=== PATIENT | male | born 1970 | race Caucasian/White ===

== ENCOUNTER → 2016-09-12 | Outpatient (CLI) | payer BC ==
[~2016-09-12] MED LIST: BUPR200T2 PO; GABA-113 PO; HYZ/10015 PO; IBUP-1428 PO; OXYC-57 PO; SERT50TA PO; TRIA0.25 PO
--- NOTE | 2016-09-12 14:43 | DIAGNOSTIC IMAGING REPORT ---
SCROTAL ULTRASOUND CLINICAL HISTORY: Spermatocele. COMPARISON STUDY: None. TECHNIQUE: Grayscale and color and duplex Doppler sonography of the scrotum was performed. FINDINGS: The right testis measures 4.4 x 1.7 x 2.9 cm and the left measures 3.9 x 2.6 x 2.9 cm. There is no testicular mass. Color flow within each testis is symmetric. There is a 2 mm left epididymal cyst. There is a 3.3 x 1.9 x 3.7 cm cystic focus adjacent to the right testis which suggests a spermatocele. IMPRESSION: 1. Normal sonographic appearance of the testes. 2. 3.3 x 1.9 x 3.7 cm right sided spermatocele. Electronically signed by: Sarkis Workman M.D. 09/12/2016 2:41 PM Dictated Date/Time: 09/12/2016 2:40 PM
== END | disposition home or self-care (01) ==
LOC: C.ULTR 13:48
PROVIDERS: ATTEND Nurse Practitioner Adult Health
DX: N40.1 Benign prostatic hyperplasia with lower urinary tract symptoms (principal); R39.12 Poor urinary stream; R39.11 Hesitancy of micturition; N43.40 Spermatocele of epididymis, unspecified

== ENCOUNTER → 2017-05-23 | Outpatient (CLI) | payer BC ==
[~2017-05-23] MED LIST changes: -OXYC-57 PO
--- NOTE | 2017-05-23 19:55 | DIAGNOSTIC IMAGING REPORT ---
LUMBAR SPINE W/O CONTRAST HISTORY: Pain. Radiculopathy. LUMBAR RADICULOPATHY TECHNIQUE: Multiplanar multisequence MRI of the lumbar spine was performed without the use of contrast. COMPARISON: None. FINDINGS: For the purpose of the report the L5-S1 disc space will be located on axial image 27 of 30. Signal characteristics of the vertebral bodies are unremarkable. There is moderate degenerative disc change throughout the entire lumbar region. L1-L2: No significant central canal or neural foraminal narrowing. L2-L3: No significant central canal or neural foraminal narrowing. L3-L4: Mild broad-based disc bulge. Minimal impact anterior thecal sac. L4-L5: Minimal central disc bulge. Minimal impact anterior thecal sac. L5-S1: Minimal central disc bulge. Minimal impact anterior thecal sac. IMPRESSION: 1. Minimal disc bulges L3-S1. 2. No evidence for significant disc herniation or spinal stenotic change. 3. Neuroforamina are patent bilaterally at all levels. 4. note is made of a lower pole right renal cyst measuring 3.2 cm. The above report was generated using voice recognition software. It may contain grammatical, syntax or spelling errors. Electronically signed by: Jp Davis M.D. 05/23/2017 7:53 PM Dictated Date/Time: 05/23/2017 7:47 PM
== END | disposition home or self-care (01) ==
LOC: C.MRI 18:38
PROVIDERS: ATTEND Physician Assistant
DX: M51.16 Intervertebral disc disorders with radiculopathy, lumbar region (principal); N28.1 Cyst of kidney, acquired

== ENCOUNTER → 2017-08-27 | Outpatient (CLI) | payer BC ==
[~2017-08-27] MED LIST changes: +OXYC-57 PO
--- NOTE | 2017-08-27 17:16 | DIAGNOSTIC IMAGING REPORT ---
L KNEE 1 OR 2 VIEWS ROUTINE, R KNEE 1 OR 2 VIEWS ROUTINE CLINICAL HISTORY: BILATERAL KNEE PAIN COMPARISON STUDY: None. FINDINGS: No fracture or dislocation. Soft tissues are unremarkable. No knee effusions. Bone mineralization is intact. Cartilage spaces are maintained for age. There is a 1 cm metallic foreign body within the distal lateral left thigh soft tissues. IMPRESSION: 1. No significant abnormality within the right or left knee. 2. There is a 1 cm metallic foreign body seen within the left distal lateral thigh. Electronically signed by: Karan Jin M.D. 08/27/2017 5:15 PM Dictated Date/Time: 08/27/2017 5:13 PM
== END | disposition home or self-care (01) ==
LOC: C.RADBC 15:48
PROVIDERS: ATTEND Physician Assistant
DX: M25.561 Pain in right knee (principal); M25.562 Pain in left knee